=== PATIENT | male | born 1955 | race Caucasian/White ===

== ENCOUNTER 2016-07-29 13:56 | Emergency (ER) | payer OTHER ==
[~2016-07-29] VITALS: Ht 172.7 cm; Wt 71.0 kg
[2016-07-29] MEDS ORDERED: LIDOCAINE HCL/EPINEPHRINE 1%-EPI 1:100,000 30 ML VIAL INFIL ONE ×2 (16:00)
[2016-07-29] MEDS ORDERED: HYDROCODONE/ACETAMINOPHEN 5/325MG TABLET PO ONE (16:00)
[2016-07-29] MEDS ORDERED: ONDANSETRON 4MG ODT PO ONE (16:00)
[2016-07-29] MEDS ORDERED: LIDOCAINE HCL 1%/EPI 1:200,000 30 ML VIAL IJ SCH ×2 (17:15)
[2016-07-29] MEDS ORDERED: BACITRACIN ZINC OINT UDPKT TOP ONE (18:45)
[2016-07-29 19:07] VITALS: BP 145/86
== END 2016-07-29 19:10 | disposition home or self-care (01) ==
LOC: ER 16:27
DX: S81.811A Laceration without foreign body, right lower leg, initial encounter (principal); I10 Essential (primary) hypertension; W25.XXXA Contact with sharp glass, initial encounter; Y93.89 Activity, other specified; Y92.89 Other specified places as the place of occurrence of the external cause
CPT/HCPCS: 12001; 73590; 99284; Q0162; X7700; Z7610